=== PATIENT | female | born 1985 | race Caucasian/White ===

== ENCOUNTER 2017-05-03 19:27 | Emergency (ER) | payer OTHER, BC ==
[~2017-05-03] VITALS: Ht 165.1 cm; Wt 64.9 kg
[2017-05-03 22:15] VITALS: BP 110/74
== END 2017-05-03 22:16 | disposition home or self-care (01) ==
LOC: ED 22:02
DX: O9A.212 Injury, poisoning and certain other consequences of external causes complicating pregnancy, second trimester (principal); S16.1XXA Strain of muscle, fascia and tendon at neck level, initial encounter; R10.9 Unspecified abdominal pain; Z3A.15 15 weeks gestation of pregnancy; V49.49XA Driver injured in collision with other motor vehicles in traffic accident, initial encounter; Y93.89 Activity, other specified; Y92.488 Other paved roadways as the place of occurrence of the external cause; Y99.8 Other external cause status
CPT/HCPCS: 72020; 72050; 76856; 99284